=== PATIENT | female | born 1985 | race Caucasian/White ===

== ENCOUNTER → 2016-08-28 | Outpatient (CLI) | payer MEDICAID ==
--- NOTE | 2016-08-28 17:16 | MR ---
EXAM DATE: 08/28/16 PATIENT'S AGE: 30 Patient: ANGÉLICA FONTENOT Facility: [place], [place] Site . Site : [id number] Study: MRI Knee Left [id number]/27/2017 12:10:47 PM Ordering Physician: Lupe Vaca Final Report: Indication: Knee pain, worse with taking the stairs. History of fall. Comparison: None available. Technique: Axial PD fat-sat, coronal PD, T1 and PD fat sat and coronal PD and PD fat sat sequences. Body habitus limits image quality. Findings: Medial compartment: Meniscus: Intact. Articular cartilage: Mildly heterogeneous grade 2 to some areas of near full thickness articular cartilage thinning in the central weightbearing medial condyle over a diameter of about 14 mm (image 25 series 6 and image 18 series 8) . Remainder has uniform thickness and signal. Medial collateral ligament: Intact. Cruciate ligaments: ACL: Expanded intermediate signal indistinct ligament. No fluid defined tear or abnormal orientation. PCL: Prominent intermediate signal centrally and moderate expansion. Lateral compartment: Meniscus: Intact. Articular cartilage: Uniform. Lateral collateral complex: Intact. Patellofemoral compartment: Uniform thickness and signal of the articular cartilage. Extensor mechanism: Distal quadriceps tendon and patellar tendon are intact. Prominent lateral subluxation. Redundancy in the patellar tendon with borderline patella [place]. Trochlear morphology is within normal limits. Tibial tuberosity to trochlear groove distance is within normal limits. Bones and soft tissues: Moderate joint effusion without significant synovitis or loose body. Small enthesopathic cysts in the tibial spine between the insertion of the PCL and ACL. Subtle cyst in the posterior tibial plateau deep to the medial meniscal root and PCL insertion. Impression: 1. Prominent mucoid degeneration or sequela of remote partial thickness injury ACL and PCL. 2. 14 mm diameter area of grade 2/3 chondromalacia weightbearing medial condyle. 3. Moderate simple appearing joint effusion. 4. Lateral subluxation of the patella. Correlation with lateral patellar tracking recommended. Dictated by Michael Storm MD @ Aug 28 2016 4:33PM (Electronic Signature) Report Signed by Proxy. SUN
== END ==
LOC: MW.MRI 11:27
PROVIDERS: ATTEND Orthopaedic Surgery
DX: M25.562 Pain in left knee (principal); M94.28 Chondromalacia, other site; M25.40 Effusion, unspecified joint; S73.002A Unspecified subluxation of left hip, initial encounter
CPT/HCPCS: 73721-26-LT; 73721-LT

== ENCOUNTER 2019-04-02 14:57 | Emergency (ER) | payer SELFPAY ==
--- NOTE | 2019-04-02 15:27 | EDM.PDOC ---
ED HPI GENERAL MEDICAL PROBLEM - General Chief Complaint: Head Injury Stated Complaint: HEAD INJURY Time Seen by Provider: 04/02/19 15:26 Source of Information: Reports: Patient History Limitations: Reports: No Limitations - History of Present Illness INITIAL COMMENTS - FREE TEXT/NARRATIVE: HISTORY AND PHYSICAL: History of present illness: Review of systems: As per history of present illness and below otherwise all systems reviewed and negative. Past medical history: As per history of present illness and as reviewed below otherwise noncontributory. Surgical history: As per history of present illness and as reviewed below otherwise noncontributory. Social history: See social history for further information Family history: As per history of present illness and as reviewed below otherwise noncontributory. Physical exam: General: HEENT: Atraumatic, normocephalic, pupils equal and reactive bilaterally, negative for conjunctival pallor or scleral icterus, mucous membranes moist, TMs normal bilaterally, throat clear, neck supple, nontender, trachea midline. No drooling or trismus noted. No meningeal signs. No hot potato voice noted. Lungs: Clear to auscultation, breath sounds equal bilaterally, chest nontender. Heart: S1S2, regular rate and rhythm without overt murmur Abdomen: Soft, nondistended, nontender. Negative for masses or hepatosplenomegaly. Negative for costovertebral tenderness. Pelvis: Stable nontender. Genitourinary: Deferred. Rectal: Deferred. Skin: Intact, warm, dry. No lesions or rashes noted. Extremities: Atraumatic, moves all extremities per self without difficulty or deficits, negative for cords or calf pain. Neurovascular unremarkable. Neuro: Awake, alert, oriented. Cranial nerves II through XII unremarkable. Cerebellum unremarkable. Motor and sensory unremarkable throughout. Exam nonfocal. Notes: Supportive care measures were reviewed and discussed. Voices understanding and is agreeable to plan of care. Denies any further questions or concerns at this time. Diagnostics: Head CT Therapeutics: Prescription: Impression: Plan: Definitive disposition and diagnosis as appropriate pending reevaluation and review of above. - Related Data Allergies Allergy/AdvReac Type Severity Reaction Status Date / Time No Known Allergies Allergy Verified 10/12/14 16:29 Home Meds: Home Meds Acetaminophen/HYDROcodone [Wallace 325-5 MG] 1 dose PO Q4H PRN #15 tablet [Rx] Amitriptyline [Elavil] 1 tab PO DAILY 04/07/18 [History] Diclofenac Sodium [Voltaren] 1 tab PO TID PRN 04/07/18 [History] buPROPion [Wellbutrin] 1 tab PO DAILY 04/07/18 [History] Past Medical History [employer]ICE History: Reports: Musculoskeletal History: Reports: Other (See Below) Other Musculoskeletal History: chronic knee pain Neurological History: Reports: Other (See Below) Other Neuro History: insomnia Psychiatric History: Reports: Anxiety Endocrine/Metabolic History: Reports: Obesity/BMI 30+ - Infectious Disease History Infectious Disease History: Reports: Chicken Pox - Past Surgical History Female Surgical History: Reports: Section Social & Family History - Family History Family Medical History: Noncontributory Neurological: Reports: CVA Oncologic: Reports: Breast - Caffeine Use Caffeine Use: Reports: Soda Course - Orders/Labs/Meds Orders: Active Orders 24 hr Category Date Time Status Head wo Cont [CT] Stat Exams 04/02/19 15:17 Taken Departure - Discharge Information Referrals: Ganesh Ayala DO [Primary Care Provider] - - My Orders Last 24 Hours: My Active Orders 04/02/19 15:17 Head wo Cont [CT] Stat - Assessment/Plan Last 24 Hours: My Active Orders 04/02/19 15:17 Head wo Cont [CT] Stat
--- NOTE | 2019-04-02 15:53 | EDM.PDOC ---
ED HPI GENERAL MEDICAL PROBLEM - General Chief Complaint: Head Injury Stated Complaint: HEAD INJURY Time Seen by Provider: 04/02/19 15:26 - History of Present Illness INITIAL COMMENTS - FREE TEXT/NARRATIVE: HISTORY AND PHYSICAL: History of present illness: patient is a 33-year-old female presents status post fall home which she struck her head g a small wound to the occipital scalp there is no loss consciousness no neck pain no nausea vomiting or other complaints. Review of systems: As per history of present illness and below otherwise all systems reviewed and negative. Past medical history: As per history of present illness and as reviewed below otherwise noncontributory. Surgical history: As per history of present illness and as reviewed below otherwise noncontributory. Social history: No reported history of drug or alcohol abuse. Family history: As per history of present illness and as reviewed below otherwise noncontributory. Physical exam: HEENT: patient is a minor wound to her occipital scalp there i step-off no depression that hemostasis, normocephalic, pupils reactive, negative for conjunctival pallor or scleral icterus, mucous membranes moist, throat clear, neck supple, nontender, trachea midline. Lungs: Clear to auscultation, breath sounds equal bilaterally, chest nontender. Heart: S1S2, regular, negative for clicks, rubs, or JVD. Abdomen: Soft, nondistended, nontender. Negative for masses or hepatosplenomegaly. Negative for costovertebral tenderness. Pelvis: Stable nontender. Genitourinary: Deferred. Rectal: Deferred. Extremities: Atraumatic, negative for cords or calf pain. Neurovascular unremarkable. Neuro: Awake, alert, oriented. Cranial nerves II through XII unremarkable. Cerebellum unremarkable. Motor and sensory unremarkable throughout. Exam nonfocal. Diagnostics: CT brain Therapeutics: wound was cleansed dressed with bacitracin Impression: head injury with minor scalp wound Definitive disposition and diagnosis as appropriate pending reevaluation and review of above. Head Pain Score (Numeric/FACES): 7 - Related Data Allergies Allergy/AdvReac Type Severity Reaction Status Date / Time No Known Allergies Allergy Verified 10/12/14 16:29 Home Meds: Home Meds Amitriptyline [Elavil] 1 tab PO DAILY 04/07/18 [History] buPROPion [Wellbutrin] 1 tab PO DAILY 04/07/18 [History] Past Medical History [employer] History: Reports: Musculoskeletal History: Reports: Other (See Below) Other Musculoskeletal History: chronic knee pain Neurological History: Reports: Other (See Below) Other Neuro History: insomnia Psychiatric History: Reports: Anxiety Endocrine/Metabolic History: Reports: Obesity/BMI 30+ - Infectious Disease History Infectious Disease History: Reports: Chicken Pox - Past Surgical History Female Surgical History: Reports: Section Social & Family History - Family History Family Medical History: Noncontributory Neurological: Reports: CVA Oncologic: Reports: Breast - Tobacco Use Smoking Status *Q: Current Every Day Smoker Years of Tobacco use: 14 Packs/Tins Daily: 0.5 Second Hand Smoke Exposure: No - Caffeine Use Caffeine Use: Reports: None - Recreational Drug Use Recreational Drug Use: Yes Recreational Drug Type: Reports: Marijuana/Hashish Recreational Drug Use Frequency: Daily ED ROS GENERAL - Review of Systems Review Of Systems: Comprehensive ROS is negative, except as noted in HPI. ED EXAM, GENERAL - Physical Exam Exam: See Below (see dictation) Course - Vital Signs Last Recorded V/S: Last Vital Signs Temp 36.5 C 04/02/19 15:42 Pulse 91 04/02/19 15:42 Resp 16 04/02/19 15:42 BP 142/89 H 04/02/19 15:42 Pulse Ox 97 04/02/19 15:42 - Orders/Labs/Meds Orders: Active Orders 24 hr Category Date Time Status Head wo Cont [CT] Stat Exams 04/02/19 15:17 Taken Departure - Departure Time of Disposition: 15:50 Disposition: Home, Self-Care 01 Condition: Good Clinical Impression: Head injury, Abrasion - Discharge Information Referrals: Ganesh Ayala DO [Primary Care Provider] - Forms: ED Department Discharge Additional Instructions: The following information is given to patients seen in the emergency department who are being discharged to home. This information is to outline your options for follow-up care. We provide all patients seen in our emergency department with a follow-up referral. The need for follow-up, as well as the timing and circumstances, are variable depending upon the specifics of your emergency department visit. If you don't have a primary care physician on staff, we will provide you with a referral. We always advise you to contact your personal physician following an emergency department visit to inform them of the circumstance of the visit and for follow-up with them and/or the need for any referrals to a consulting specialist. The emergency department will also refer you to a specialist when appropriate. This referral assures that you have the opportunity for followup care with a specialist. All of these measure are taken in an effort to provide you with optimal care, which includes your followup. Under all circumstances we always encourage you to contact your private physician who remains a resource for coordinating your care. When calling for followup care, please make the office aware that this follow-up is from your recent emergency room visit. If for any reason you are refused follow-up, please contact the [facility] emergency department at and asked to speak to the emergency department charge nurse. Head injury instructions bacitracin to wound as discussed follow-up primary medical doctor return as needed as discussed
[2019-04-02] MEDS ORDERED: Diphtheria,Pertussis(Acell),Tetanus Vaccine 0.5 ML Syringe IM ONE (15:55)
[2019-04-02] MEDS ORDERED: Bacitracin Oint 1 GM U/D Packet TOP ONE (15:56)
--- NOTE | 2019-04-02 16:11 | CT ---
HISTORY: Fall. Head injury. Headache. COMPARISON: None. TECHNIQUE: Noncontrast axial images were obtained from the skullbase to the vertex and reviewed in brain, blood and bone windows. FINDINGS: Randhawa-white matter differentiation is preserved. No evidence for acute intracranial hemorrhage or infarction. No midline shift or mass effect. The ventricles are nondilated and symmetric. No abnormal intra or extra-axial fluid collection. The bony calvaria are intact. Visualized paranasal sinuses and mastoid air cells are clear. Small left posterior scalp hematoma. Impression : No acute intracranial pathology. Left posterior scalp hematoma. Please note that all CT scans at this facility use dose modulation, iterative reconstruction, and/or weight-based dosing when appropriate to reduce radiation dose to as low as reasonably achievable. Dictated by Marleny Le MD @ Apr 02 2019 4:06PM Signed by Dr. Marleny Le @ Apr 02 2019 4:10PM
[2019-04-02 18:44] VITALS: BP 139/85; PULSE 78
== END 2019-04-02 16:30 | disposition home or self-care (01) ==
LOC: MW.ED 14:57
DX: S00.01XA Abrasion of scalp, initial encounter (principal); F41.9 Anxiety disorder, unspecified; E66.9 Obesity, unspecified; F17.210 Nicotine dependence, cigarettes, uncomplicated; Z68.43 Body mass index [BMI] 50.0-59.9, adult; W19.XXXA Unspecified fall, initial encounter; W22.8XXA Striking against or struck by other objects, initial encounter
CPT/HCPCS: 70450; 70450-26; 90471; 90715; 99284; 99284-25